=== PATIENT | male | born 1985 | race Caucasian/White ===

== ENCOUNTER 2017-02-07 03:15 | Emergency (ER) | payer SELFPAY ==
[~2017-02-07] VITALS: Ht 172.7 cm; Wt 101.6 kg
--- NOTE | 2017-02-07 03:20 | NUR ---
BIBA TO ER BED 6
[2017-02-07 03:25] VITALS: BP 116/66
--- NOTE | 2017-02-07 03:30 | NUR ---
Patient being evaluated by physician at bedside.
--- NOTE | 2017-02-07 03:30 | NUR ---
31 Y/O M BIBA C/O ETOH , HE DRINKS BEER, FOUND IN A PARKING LOT. NO S/S OF DISTRESS NOTED, ON INSERT OPERATOR. VSS. AWAKE AND ORIENTED X 4. ER MD MADE AWARE.
--- NOTE | 2017-02-07 03:56 | NUR ---
PATIENT ELOPED FROM FACILITY. DISCHARGE INSTRUCTIONS NOT GIVEN TO PATIENT. DR. HOBBS NOTIFIED.
--- NOTE | 2017-02-07 03:58 | NUR ---
[place] [employer] CALLED AND WAS NOTIFIED THAT PT ELOPED AFTER PASSING RO[address] TEST BY SWATHI LEAVITT. PER [place] NO NEED TO FILE REPORT AT THE MOMENT D/T NO FELONIES TO FOLLOW UP ON.SWATHI LEAVITT MADE AWARE.
[2017-02-07 04:08] VITALS: BP 116/66
== END 2017-02-07 03:56 | disposition left against medical advice (07) ==
LOC: MED 03:15
DX: F10.129 Alcohol abuse with intoxication, unspecified (principal)
CPT/HCPCS: 99283

== ENCOUNTER 2017-02-17 00:43 | Emergency (ER) | payer MEDICAID ==
[~2017-02-17] VITALS: Ht 170.2 cm; Wt 97.5 kg
[2017-02-17 00:49] VITALS: BP 105/63
--- NOTE | 2017-02-17 01:00 | NUR ---
PATIENT BIB PD TO ER OF
--- NOTE | 2017-02-17 01:15 | NUR ---
PATIENT BEING EVALUATED BY DR. LAWRENCE.
[2017-02-17 01:25] VITALS: BP 111/61
--- NOTE | 2017-02-17 01:25 | NUR ---
Patient discharged with v/s stable. Written and verbal after care instructions given and explained. Patient verbalized understanding. Police with in custody. All questions addressed prior to discharge. Advised to follow up with PMD.
== END 2017-02-17 01:25 ==
LOC: MED 00:43
DX: Z02.89 Encounter for other administrative examinations (principal); R06.02 Shortness of breath
CPT/HCPCS: 90471; 90715; 99283

== ENCOUNTER 2019-02-19 01:05 | Inpatient (IN) | payer MEDICAID, OTHER ==
--- NOTE | 2019-02-18 22:00 | NUR ---
PT SLEEPING COMFORTABLY IN BED BUT AROUSABLE. NO S/S OF DISTRESS NOTED. NO COMPLAINTS OF PAIN. NO SOB. AFEBRILE. WILL CONTINUE TO MONITOR. Addendum: 02/22/19 at 0011 by Donato Cardona RN WRONG DATE.
[~2019-02-19] VITALS: Ht 170.2 cm; Wt 120.7 kg
[2019-02-19 01:11] VITALS: BP 153/97
--- NOTE | 2019-02-19 01:23 | NUR ---
PT TO ED WITH C/O ABD PAIN INCREASING IN PAIN X 1800. ABD IS SOFT NON TENDER. DENIES PAIN UPON PALPATION. BOWEL SOUNDS ACTIVE X 4. PT STATES "I WAS SEEN AT THE CLINIC AND DX WITH GASTRITIS AND THEY DID A H. PYLORI TEST AND IT WAS POSITIVE" PT PLACED INTO BED, PENDING MD GRANGER.
[2019-02-19] MEDS ORDERED: DICYCLOMINE HCL LIQUID 20 MG, ALUMINUM HYD/MAG/SIMETHICONE 30 ML, LIDOCAINE VISCOUS 2% ... PO ONE ×3 (01:30)
--- NOTE | 2019-02-19 01:55 | NUR ---
PAIN UNRELIEVED BY GI COCKTAIL, PT REMAINS IN 10/10 PAIN. ER MD NOTIFIED. ORDERS TO FOLLOW.
[2019-02-19] MEDS ORDERED: MORPHINE SULFATE 4 MG/ML SYR IVP ONE ×3 (02:05→04:15)
[2019-02-19 02:22] LABS: BASOPHILS % (AUTO) 0.3 % (0.0-2.0); EOSINOPHILS # (AUTO) 0.1 K/uL (0-0.4); EOSINOPHILS % (AUTO) 0.8 % (0.0-4.0); HEMATOCRIT 47.3 % (36-52); HEMOGLOBIN 16.5 g/dL (12.0-18.0); LYMPHOCYTES # (AUTO) 2.1 K/uL (2.0-11.5); LYMPHOCYTES % (AUTO) 18.1 % (20.5-51.1); MEAN CORPUSCULAR HEMOGLOBIN 32 pg (27-31); MEAN CORPUSCULAR HGB CONC 35 g/dL (33-37); MEAN CORPUSCULAR VOLUME 91.2 fL (80-94); MONOCYTES % (AUTO) 8.6 % (1.7-9.3); NEUTROPHILS # (AUTO) 8.3 K/uL (1.8-7.7); NEUTROPHILS % (AUTO) 72.2 % (42.2-75.2); PLATELET COUNT (AUTO) 262 K/uL (140-450); RED BLOOD CELL COUNT(AUTO) 5.19 MIL/uL (4.20-6.10); RED CELL DISTRIBUTION WIDTH 12.4 % (11.6-13.7); WHITE BLOOD COUNT (AUTO) 11.5 K/uL (4.8-10.8)
[2019-02-19 02:32] LABS: ANION GAP 13.8 (8-16); CARBON DIOXIDE 26.8 mmol/L (21-32); CREATININE 1.1 mg/dL (0.7-1.3); POTASSIUM 3.6 mmol/L (3.5-5.1)
[2019-02-19 02:44] LABS: ALBUMIN 3.9 g/dL (3.4-5.0); TOTAL BILIRUBIN 1.9 mg/dL (0.0-1.0)
[2019-02-19] MEDS ORDERED: NACL 0.9% 1,000 ML IV ONE (02:50)
--- NOTE | 2019-02-19 03:00 | NUR ---
PT REPORTING RELIEF OF PAIN POST MORPHINE ADMIN. RATING 6/10. WILL CONTINUE TO ASSESS PAIN.
--- NOTE | 2019-02-19 04:00 | NUR ---
NO CHANGE IN PT CONDITION AT THIS TIME. WILL CONTINUE TO ASSESS.
--- NOTE | 2019-02-19 04:15 | NUR ---
PT REQUESTING PAIN MEDICATION PRIOR TO ULTRASOUND. ER MD AWARE. ORDERS TO FOLLOW.
--- NOTE | 2019-02-19 04:25 | NUR ---
Ultrasound at bedside.
[2019-02-19] MEDS ORDERED: ACETAMINOPHEN 325 MG TAB PO PRN (05:20)
[2019-02-19] MEDS ORDERED: ONDANSETRON 4 MG/2 ML VIAL IVP PRN ×2 (05:20→09:30)
[2019-02-19] MEDS ORDERED: MORPHINE SULFATE 2 MG/ML SYR IVP PRN ×2 (05:25→20:30)
--- NOTE | 2019-02-19 05:35 | NUR ---
Patient will be admitted to care of DR BACH. Admited to MED/SURG. Will go to room 112-A. Belongings list completed. Report to MARCUS JOHN.
--- NOTE | 2019-02-19 05:35 | NUR ---
PT ARRIVED FROM ER VIA WHEELCHAIR, PT AMBULATED TO BED, TOLERATED WELL, REPORT RECEIVED BEDSIDE FROM ED NURSE URMILA RN, PT STABLE, NO DISTRESS NOTED, IV TO L AC 20G PATENT INTACT, SL, PT ON ROOM AIR, STATED HAVING PAIN 10/10 TO THE UPPER ABD, WILL MEDICATE, ORIENT PT TO ROOM, BED, CALL LIGHT, PT STATED UNDERSTANDING, EXPLAINED TO PT THAT CURRENTLY PT IS NPO, PT STATED UNDERSTANDING, MRSA SWAB TAKEN, V/S TAKEN, INITIAL ASSESSMENT DONE, ALL SAFETY PRECAUTION MET, CALL LIGHT WITHIN REACH, WILL CONTINUE TO MONITOR.
[2019-02-19 05:44] LABS: APPEARANCE,URINE CLEAR (CLEAR); BILIRUBIN,URINE NEGATIVE (NEGATIVE); BLOOD, URINE TRACE-L (NEGATIVE); COLOR,URINE DARK YELLOW (YELLOW); LEUKOCYTE ESTERASE ,URINE NEGATIVE (NEGATIVE); NITRITE, URINE NEGATIVE (NEGATIVE); UGLUCOSE NEGATIVE (NEGATIVE)
[2019-02-19 05:45] VITALS: BP 158/90
--- NOTE | 2019-02-19 05:47 | NUR ---
PT C/O PAIN, AND MEDICATION MORPHINE STATED WAS NOT WORKING FOR HIM. NOTIFIED DR. ZAVALETA REGARDING MORPHINE NOT WORKING, STATED WILL ORDER TORADOL. PAIN MEDICATION ADMINISTERED, PT TOLERATED WELL, NO DISTRESS NOPTED, CALL LIGHT WITHIN REACH, WILL CONTINUE TO MONITOR.
[2019-02-19] MEDS: DEXT 5% /NACL 0.9% 1,000 ML IV SCH ×3 (05:48→23:41)
[2019-02-19 05:51] LABS: PROTHROMBIN TIME 10.3 secs (10.8-13.4)
[2019-02-19] MEDS ORDERED: KETOROLAC 30 MG/ML VIAL IVP SCH (06:00)
[2019-02-19 06:04] LABS: BARBITURATE, URINE NEGATIVE ng/ml (NEG <=200); BENZODIAZEPINE, URINE NEGATIVE ng/mL (NEG <=200); CANNABINOID, URINE NEGATIVE ng/mL (NEG <=50); COCAINE, URINE NEGATIVE ng/mL (NEG <=300); OPIATE, URINE NEGATIVE ng/mL (NEG <=2000); PHENCYCLIDINE SCREEN,URINE NEGATIVE ng/mL (NEG <=25)
[2019-02-19 06:39] LABS: RBC,URINE 0-5 /HPF (0-5); WBC,URINE 0-5 /HPF (0-5)
[2019-02-19] MEDS ORDERED: LANSOPRAZOLE 30 MG CAPDR PO SCH (07:03)
--- NOTE | 2019-02-19 07:12 | NUR ---
PREVACID ORDERED NOT ADMINISTERED, PT NPO FOR SURGERY.
--- NOTE | 2019-02-19 07:13 | NUR ---
ENDORSED PT TO DAY SHIFT NURSE DAVID VELAZQUEZ, PT STABLE, NO DISTRESS NOTED, CALL LIGHT WITHIN REACH.
--- NOTE | 2019-02-19 07:14 | NUR ---
RECEIVED BEDSIDE REPORT FROM MICROBIOLOGY ANALYST RN, ALVARO. PATIENT STABLE, NO SIGNS OF DISTRESS ON RA, NO C/O PAIN AT THIS TIME. SAFETY PRECAUTIONS IN PLACE, CALL LIGHT IN REACH. WILL CONTINUE TO MONITOR.
[2019-02-19 07:30] LABS: CHOL/HDL RATIO 6.3 (1-4.5); FREE T4 (FREE THYROXINE) 1.7 ng/dL (0.76-1.46); MAGNESIUM 1.9 mg/dL (1.8-2.4); PHOSPHORUS 3.1 mg/dL (2.5-4.9); THYROID STIMULATING HORMONE 0.92 uIU/mL (0.34-3.74)
[2019-02-19 08:00] VITALS: BP 144/76
[2019-02-19] MEDS: DOCUSATE SODIUM 100 MG GELCAP PO SCH ×2 (08:25→20:39)
[2019-02-19] MEDS: LACTOBACILLUS RHAMNOSUS GG 1 EACH CAP PO SCH (08:25)
--- NOTE | 2019-02-19 08:26 | NUR ---
PATIENT VITALS ARE STABLE DOCTOR SPOKE TO PATIENT REGARDING SURGERY. PATIENT VERBALIZED UNDERSTANDING. CONSENT SIGNED.
[2019-02-19] MEDS: BUPIVACAINE-MPF/EPI 0.25% 30 ML VIAL INJ ONE ×2 (08:42→13:40)
--- NOTE | 2019-02-19 08:50 | NUR ---
PATIENT OFF FLOOR FOR PROCEDURE. REPORT GIVEN TO FINISHER DENTURE, VITALS STABLE, BP SLIGHTLY ELEVATED. PATIENT ALERT AND ORIENTED AT THIS TIME. WILL CONTINUE TO MONITOR ONCE PATIENT RETURNS TO UNIT.
[2019-02-19] MEDS ORDERED: ROCURONIUM 50 MG/5 ML VIAL IV ONE (09:05)
[2019-02-19] MEDS ORDERED: DESFLURANE 240 ML BTL INH ONE (09:05)
[2019-02-19] MEDS ORDERED: DEXAMETHASONE 4 MG/ML VIAL ONE (09:05)
[2019-02-19] MEDS ORDERED: SUCCINYLCHOLINE CHLORIDE 200 MG/10 ML VIAL IVP ONE (09:05)
[2019-02-19] MEDS ORDERED: PROPOFOL 200 MG/20 ML VIAL IV ONE (09:05)
[2019-02-19] MEDS ORDERED: ONDANSETRON 4 MG/2 ML VIAL ONE (09:05)
[2019-02-19] MEDS ORDERED: KETOROLAC 30 MG/ML VIAL ONE (09:05)
[2019-02-19] MEDS ORDERED: ceFAZolin 1,000 MG VIAL ONE (09:15)
--- NOTE | 2019-02-19 09:18 | NUR ---
PATIENT HAS BEEN SCREENED AND CATEGORIZED HIGH NUTRITION RISK. PATIENT WILL BE SEEN WITHIN 1-2 DAYS OF ADMISSION. 02/19/19-02/20/[address]
[2019-02-19] MEDS ORDERED: fentaNYL 0.05 MG/ML VIAL ONE (09:21)
[2019-02-19] MEDS ORDERED: HYDROmorphone PFS 2 MG/ML SYR ONE (09:22)
[2019-02-19] MEDS ORDERED: HYDROmorphone 1 MG/ML AMP IVP PRN (09:30)
[2019-02-19] MEDS ORDERED: THROMBIN KIT 20 MU VIAL TP ONE (10:59)
[2019-02-19 12:00] VITALS: BP 115/67
--- NOTE | 2019-02-19 12:20 | NUR ---
PATIENT RETURNED FROM OR. PATIENT ALERT AND ORIENTED, SAFETY PRECAUTIONS IN PLACE. SPO2 IS LOW AT 85%, APPLIED 2 L O3 NC, SPO2 INCREASED TO 93%, INFORMED DOCTOR. DOCTOR CAME TO BEDSIDE. PER DOCTOR, CONTINUE O2 UNTIL SPO2 REMAINS ABOVE 90% ON RA. ALL OTHER VITALS WITHIN NORMAL LIMITS. PATIENT STABLE.
--- NOTE | 2019-02-19 12:35 | NUR ---
PATIENT VITALS REMAIN STABLE, SPO2 94% ON 2L O2 NC. NO SIGNS OF DISTRESS. SAFETY PRECAUTIONS IN PLACE.
--- NOTE | 2019-02-19 12:50 | NUR ---
PATIENT VITALS REMAIN STABLE. SPO2 REMAINS 94% ON 2L O2 NC. WILL CONTINUE TO MONITOR.
[2019-02-19] MEDS ORDERED: guaiFENesin 20 MG/ML UDC PO PRN (13:00)
--- NOTE | 2019-02-19 13:30 | NUR ---
PATIENT REMAINS ON 2L NC, DOCTOR ORDERED INCENTIVE SPIROMETER TO ENCOURAGE DEEPER BREATHING.
[2019-02-19] MEDS: metroNIDAZOLE 500 MG/NS PREMIX 100 ML IV SCH ×2 (13:48→21:57)
--- NOTE | 2019-02-19 13:48 | NUR ---
ADMINISTERED SCHEDULED MEDICATIONS. PATIENT SPO2 93% ON ROOM AIR. REMOVED NC. WILL CONTINUE TO MONITOR SPO2.
[2019-02-19] MEDS: AMPICILLIN 1,000 MG in NACL 0.9% 50 ML IV SCH ×2 (14:43→21:02)
[2019-02-19] MEDS: HYDROcodone/APAP 7.5/325 MG 1 TAB PO PRN ×2 (14:43→20:40)
--- NOTE | 2019-02-19 14:43 | NUR ---
ADMINISTERED SCHEDULED MEDICATIONS. PATIENT SATING WELL ON ROOM AIR. NO SIGNS OF DISTRESS. SAFETY PRECAUTIONS IN PLACE.
[2019-02-19 16:00] VITALS: BP 103/58
[2019-02-19] MEDS: KETOROLAC 15 MG/ML VIAL IM PRN (17:25)
--- NOTE | 2019-02-19 17:25 | NUR ---
ADMINISTERED 30MG TORADOL IV FOR ABDOMINAL PAIN. WILL REASSESS.
--- NOTE | 2019-02-19 18:45 | NUR ---
PAIN HAS SUBSIDED. PATIENT AMBULATED TO BATHROOM. NO SIGNS OF DISTRESS ON RA.
--- NOTE | 2019-02-19 19:05 | NUR ---
RECD. RESTING IN BED, AWAKE, A/OX4. RESPIRATION EVEN AND UNLABORED.IV OF D5NS AT 100 ML/HR INFUSING, LEFT AC G20. INCISION IN THE ABDOMEN (4) COVERED WITH DRESSING DRY AND INTACT. TOLERATING CLEAR LIQUID DIET. AMBULATING TO THE BR. PASSING GAS BUT NOT BM YET. ADVISED TO ALTERNATELY TURN TO THE SIDES. IS AT THE BEDSIDE. REMINDED TO USE IT WHILE WATCHING TV, TO PREVENT PNEUMONIA. PLAN OF CARE FOR THE SHIFT DISCUSSED. VERBALIZED UNDERSTANDING. PAIN IN THE ABDOMEN 09/05, WILL MEDICATE ORDERED.
--- NOTE | 2019-02-19 19:30 | NUR ---
Patient's Plan of Care was discussed and reviewed with JOI: JADA. WILL CONTINUE TO MONITOR.
[2019-02-19 20:00] VITALS: BP 109/57
--- NOTE | 2019-02-19 20:40 | NUR ---
WATCHING TV. DUE PO MEDICATION GIVEN.
--- NOTE | 2019-02-19 21:30 | NUR ---
Patient's Plan of Care was discussed and reviewed with APARTMENT HOTEL MANAGER: JADA BAUMAN
[2019-02-20] VITALS: BP 120/70
--- NOTE | 2019-02-20 | NUR ---
SLEEPING COMFORTABLY IN BED.
[2019-02-20] MEDS: DEXT 5% /NACL 0.9% 1,000 ML IV SCH ×3 (01:25→21:25)
--- NOTE | 2019-02-20 02:25 | NUR ---
AWAKE IN BED, STATED THAT MORPHINE NOR NORCO DOES NOT WORK MUCH FOR HIM, WANTS TORADOL. WILL BE MEDICATED ORDERED.
[2019-02-20] MEDS: KETOROLAC 15 MG/ML VIAL IM PRN ×3 (02:33→20:37)
[2019-02-20 04:00] VITALS: BP 116/67
[2019-02-20] MEDS: AMPICILLIN 1,000 MG in NACL 0.9% 50 ML IV SCH ×3 (04:55→20:38)
[2019-02-20] MEDS: metroNIDAZOLE 500 MG/NS PREMIX 100 ML IV SCH ×3 (04:56→23:19)
[2019-02-20] MEDS: LANSOPRAZOLE 30 MG CAPDR PO SCH (06:05)
--- NOTE | 2019-02-20 06:59 | NUR ---
CONDITION REMAIN STABLE. COMPLAINTS OF PAIN ATTENDED PROMPTLY. ABLE TO SLEEP WELL. ENCOURAGED TO AMBULATE MORE. WILL ENDORSE TO AM NURSE FOR CONTINUITY OF CARE.
[2019-02-20 07:08] LABS: CARBON DIOXIDE 26.2 mmol/L (21-32); MAGNESIUM 2.1 mg/dL (1.8-2.4); PHOSPHORUS 2.6 mg/dL (2.5-4.9); POTASSIUM 4.2 mmol/L (3.5-5.1); TOTAL BILIRUBIN 5.6 mg/dL (0.0-1.0)
--- NOTE | 2019-02-20 07:20 | NUR ---
RECEIVED REPORT FROM DAY SHIFT NURSE JOSÉ. PATIENT LYING IN BED, NO SIGNS OF DISTRESS. SAFETY PRECAUTIONS IN PLACE
[2019-02-20 08:00] VITALS: BP 134/64
--- NOTE | 2019-02-20 08:00 | NUR ---
PATIENT REPORTED PAIN OF 9/10. ATTEMPTED TO ADMINISTER 2MG MORPHINE IV, BUT PATIENT STATED THAT THE DOCTOR TOLD HIM AT BEDSIDE THAT HE GOING TO INCREASE THE DOSE. DOCTOR ROUNDING AT THE TIME, PATIENT AGREED TO WAIT UNTIL ORDER FOR LARGER DOSE IS ENTERED. PATIENT VERBALIZED UNDERSTANDING THAT IT MAY TAKE SOME TIME. RETURNED 2MG MORPHINE TO [facility].
[2019-02-20 08:13] LABS: BASOPHILS % (AUTO) 0.1 % (0.0-2.0); HEMATOCRIT 42.9 % (36-52); HEMOGLOBIN 14.7 g/dL (12.0-18.0); LYMPHOCYTES % (AUTO) 9.8 % (20.5-51.1); MEAN CORPUSCULAR HEMOGLOBIN 32 pg (27-31); MEAN CORPUSCULAR HGB CONC 34 g/dL (33-37); MEAN CORPUSCULAR VOLUME 93.1 fL (80-94); MONOCYTES # (AUTO) 0.8 K/uL (0.8-1.0); MONOCYTES % (AUTO) 8.2 % (1.7-9.3); NEUTROPHILS # (AUTO) 8.2 K/uL (1.8-7.7); NEUTROPHILS % (AUTO) 81.9 % (42.2-75.2); PLATELET COUNT (AUTO) 210 K/uL (140-450); RED CELL DISTRIBUTION WIDTH 12.5 % (11.6-13.7); WHITE BLOOD COUNT (AUTO) 10.1 K/uL (4.8-10.8)
--- NOTE | 2019-02-20 09:30 | NUR ---
FOLLOWED UP ON INCREASED DOSE OF MORPHINE, DOCTOR TO PLACE AN ORDER FOR 4MG DOSE OF MORPHINE BUT WILL LEAVE THE 2MG DOSE ON ORDER. GOAL IS TO AMBULATE PATIENT AND REDUCE THE NEED FOR MORPHINE.
[2019-02-20] MEDS: LACTOBACILLUS RHAMNOSUS GG 1 EACH CAP PO SCH (09:48)
[2019-02-20] MEDS: MORPHINE SULFATE 4 MG/ML SYR IVP PRN ×3 (09:49→23:16)
[2019-02-20] MEDS: DOCUSATE SODIUM 100 MG GELCAP PO SCH ×2 (09:49→20:21)
--- NOTE | 2019-02-20 09:49 | NUR ---
ADMINISTERED SCHEDULED MEDICATION AND PRN MORPHINE 4MG IV FOR PAIN 06/05. PATIENT TOLERATED MEDICATIONS WELL. NO SIGNS OF DISTRESS ON RA. Addendum: 02/20/19 at 1114 by Cheri Alatorre RN PATIENT VERBALIZED UNDERSTANDING THAT WE WILL TRY TO CONTROL PAIN WITH THE LOWER DOSE, BUT THAT THE HIGHER DOSE IS AVAILABLE IF THE LOWER DOSE IS INSUFFICIENT
--- NOTE | 2019-02-20 11:00 | NUR ---
PATIENT UPGRADED TO REGULAR DIET, WILL INFORM PATIENT. PATIENT IS VERY HUNGRY AND TOLERATING FULL LIQUIDS.
--- NOTE | 2019-02-20 11:30 | NUR ---
PATIENT PLACE ON NPO PENDING FURTHER LAB WORK AND POSSIBLE PROCEDURE. INFORMED PATIENT. PATIENT VERBALIZED UNDERSTANDING.
--- NOTE | 2019-02-20 13:01 | NUR ---
PT INSTRUCTED ON INCENTIVE SPIROMETER USE AND INDICATIONS. PT INSTRUCTED TO USE 10X PER HOUR WHILE AWAKE. PT C/O PAIN AT DIAPHRAGM AREA AND UPPER CLAVICAL PAIN, BUT WAS ABLE TO COMPLETE IS.
--- NOTE | 2019-02-20 13:09 | NUR ---
ADMINISTERED SCHEDULED MEDICATIONS. PATIENT TOLERATED WELL. NO SIGNS OF DISTRESS. PAIN TOLERABLE AT THIS TIME. Addendum: 02/20/19 at 1999 by Cheri Alatorre RN CORRECTION PATIENT REPORTED PAIN OF 7/10 - GAVE TORADOL.
--- NOTE | 2019-02-20 14:16 | NUR ---
02/20/19 RD INITIAL ASSESSMENT COMPLETED PLEASE REFER TO NUTRITION ASSESSMENT UNDER CARE ACTIVITY FOR ESTIMATED NUTRITIONAL NEEDS. 1. CONTINUE NPO MEDICALLY NECESSARY 2. WHEN APPROPRIATE ADVANCE TO CLEAR LIQUIDS AND GRADUALLY TO A BLAND DIET 3. RD PROVIDED GALLBLADDER NUTRITION EDUCATION 4. RD TO FOLLOW-UP 5-7 DAYS, LOW RISK [address]
--- NOTE | 2019-02-20 14:30 | NUR ---
ADMINISTERED SCHEDULED MEDICATIONS. PATIENT DENIES PAIN AT THIS TIME.
--- NOTE | 2019-02-20 15:52 | NUR ---
PATIENT AMBULATED TO BATHROOM, STATES PAIN IS MUCH WORSE WHEN HE MOVES. GAVE MORPHINE FOR 8/10 PAIN.
--- NOTE | 2019-02-20 16:00 | NUR ---
ADMINISTERED PRN MORPHINE FOR 03/05 ABDOMINAL PAIN. PATIENT TOLERATED MEDICATION WELL. Addendum: 02/20/19 at 2002 by Cheri Alatorre RN THIS NOTE APPLIES TO NOTE ENTERED AT [id number]
--- NOTE | 2019-02-20 18:00 | NUR ---
PATIENT RESTING IN BED WITH FAMILY AT BEDSIDE. UPGRADED TO SOFT DIET. ORDERED A LATE TRAY. PATIENT AWARE.
--- NOTE | 2019-02-20 19:14 | NUR ---
GAVE BEDSIDE REPORT TO PEST CONTROL OPERATOR RN, PATIENT IN STABLE CONDITION.
--- NOTE | 2019-02-20 19:15 | NUR ---
RECEIVED REPORT FROM DAVID VELAZQUEZ DAYSHIFT NURSE AT BEDSIDE FOR CONTINUITY OF CARE, PT IN STABLE CONDITION.
[2019-02-20 20:00] VITALS: BP 131/66
--- NOTE | 2019-02-20 20:00 | NUR ---
PT IN LOW BED WITH SIDE RAILS UP X2. HE IS AOX4. PT HAS 4 ABDOMINAL INCISIONS CLOSED WITH LUCIANO. AREA HAS NO LEAKAGE OR S/S OF REDNESS OR INFECTION NOTED. SURROUNDING SKIN INTACT. PT HAS IV SITE ON LAC 20 G INTACT AND RUNNING D5N/S AT 100. PT STATES PAIN IS THERE BUT TOLERABLE AT THIS TIME. PT AMBULATED TO BED AND BACK WITH A STEADY GAIT. HE HAS C/O OF CONSTIPATION. WILL BRING PRUNE JUICE WITH MEDICATIONS.
--- NOTE | 2019-02-20 20:45 | NUR ---
PT C/O 03/05 PAIN IN ABDOMEN AND WAS GIVEN TORADOL 30MG, WILL MONITOR FOR PAIN RELIEF. PT ALSO GIVEN 2 CONTAINERS OF PRUNE JUICE. WILL MONITOR FOR PAIN RELIEF AND BM.
--- NOTE | 2019-02-20 21:30 | NUR ---
PT GIVEN AND COLACE ORDERED. PT ALSO GIVEN IV ABT OF AMPICILLIN AND FLAGYL. PT SAID TORADOL HELPED AND PAIN GREATLY REDUCED. NO BM YET.
--- NOTE | 2019-02-20 23:30 | NUR ---
PT C/O 7/10 PAIN IN ABDOMEN AND WAS GIVEN MORPHINE PRN/IVP ORDERED. NO ADVERSE EFFECTS OF IV ABT. WILL AGAIN MONITOR FOR PAIN RELIEF.
--- NOTE | 2019-02-21 00:30 | NUR ---
PT IN BED RESTING WITH EYES CLOSED BUT AROUSABLE TO LIGHT TOUCH. V/S FOLLOWS T 99.1 P 81 R 18 B/P 113/62 02 94% ON ROOM AIR.
--- NOTE | 2019-02-21 02:30 | NUR ---
PT IN BED ASLEEP. BED LOW SIDE RAILS UP AND IV FLUIDS D5N/S RUNNING ORDERED. NO C/O VOICED BY PT.
[2019-02-21 04:00] VITALS: BP 128/64
[2019-02-21] MEDS: AMPICILLIN 1,000 MG in NACL 0.9% 50 ML IV SCH ×3 (05:42→20:02)
[2019-02-21] MEDS: KETOROLAC 15 MG/ML VIAL IM PRN (05:49)
[2019-02-21] MEDS: LANSOPRAZOLE 30 MG CAPDR PO SCH (05:56)
[2019-02-21] MEDS: metroNIDAZOLE 500 MG/NS PREMIX 100 ML IV SCH ×2 (06:26→12:52)
[2019-02-21] MEDS: DEXT 5% /NACL 0.9% 1,000 ML IV SCH ×3 (07:25→23:55)
--- NOTE | 2019-02-21 07:29 | NUR ---
RECEIVED BEDSIDE REPORT FROM MARCUS KRAUS. PT STABLE, AWAKE, ALERT AND ORIENTED X4. NO SIGNS OF DISTRESS NOTED. DENIES PAIN OR SOB. NO REDNESS, SWELLING, OR INFLAMMATION NOTED ON IV SITE. PT HAS 5 ABDOMINAL INCISIONS, NO REDNESS OR BLEEDING NOTED, LUCIANO INTACT. CALL SMILEY WITHIN REACH. BED IN LOWEST POSITION. SAFETY MEASURES IN PLACE. PLAN OF CARE REVIEWED.
--- NOTE | 2019-02-21 07:30 | NUR ---
CARE ENDORSED TO AM SHIFT AT BEDSIDE FOR CONTINUITY OF CARE, PT IN STABLE CONDITION.
[2019-02-21 08:00] VITALS: BP 123/77
[2019-02-21 08:09] LABS: ALBUMIN 3.1 g/dL (3.4-5.0); ANION GAP 11.1 (8-16); CARBON DIOXIDE 25.6 mmol/L (21-32); CREATININE 0.9 mg/dL (0.7-1.3); MAGNESIUM 1.9 mg/dL (1.8-2.4); PHOSPHORUS 2.7 mg/dL (2.5-4.9); POTASSIUM 3.7 mmol/L (3.5-5.1); TOTAL BILIRUBIN 8.4 mg/dL (0.0-1.0)
[2019-02-21] MEDS: POLYETHYLENE GLYCOL 17 GM/PKT PO SCH (09:28)
[2019-02-21] MEDS: LACTOBACILLUS RHAMNOSUS GG 1 EACH CAP PO SCH (09:29)
[2019-02-21] MEDS: DOCUSATE SODIUM 100 MG GELCAP PO SCH ×2 (09:29→20:02)
[2019-02-21] MEDS: HYDROcodone/APAP 7.5/325 MG 1 TAB PO PRN ×3 (09:33→23:57)
--- NOTE | 2019-02-21 09:34 | NUR ---
HELD SCHEDULED HEPARIN DUE TO POSSIBLE ERCP TODAY, PT AMBULATES STEADILY IN THE ROOM AND HALLWAY, PT HAS SCDS ON. ADMINISTERED ALL OTHER SCHEDULED MEDICATIONS AND PRN NORCO FOR 5/10 ABDOMINAL PAIN. PT TOLERATED WELL. WILL CONTINUE TO MONITOR.
[2019-02-21 10:22] LABS: BASOPHILS # (AUTO) 0.1 K/uL (0.00-0.22); BASOPHILS % (AUTO) 0.7 % (0.0-2.0); EOSINOPHILS # (AUTO) 0.1 K/uL (0-0.4); EOSINOPHILS % (AUTO) 0.9 % (0.0-4.0); HEMATOCRIT 43.8 % (36-52); LYMPHOCYTES % (AUTO) 21.9 % (20.5-51.1); MEAN CORPUSCULAR HEMOGLOBIN 32 pg (27-31); MEAN CORPUSCULAR HGB CONC 34 g/dL (33-37); MEAN CORPUSCULAR VOLUME 93.5 fL (80-94); MONOCYTES % (AUTO) 10.8 % (1.7-9.3); NEUTROPHILS # (AUTO) 5.9 K/uL (1.8-7.7); NEUTROPHILS % (AUTO) 65.7 % (42.2-75.2); PLATELET COUNT (AUTO) 218 K/uL (140-450); RED BLOOD CELL COUNT(AUTO) 4.68 MIL/uL (4.20-6.10); RED CELL DISTRIBUTION WIDTH 12.7 % (11.6-13.7); WHITE BLOOD COUNT (AUTO) 8.9 K/uL (4.8-10.8)
--- NOTE | 2019-02-21 11:05 | NUR ---
PT AMBULATING IN THE HALLWAY WITH STEADY GAIT.
--- NOTE | 2019-02-21 12:16 | NUR ---
ADMINISTERED SCHEDULED AMPICILLIN, PT TOLERATED WELL. FAMILY AT THE BEDSIDE. NO OTHER NEEDS AT THIS TIME.
--- NOTE | 2019-02-21 12:54 | NUR ---
ADMINISTERED SCHEDULED FLAGYL, PT TOLERATED WELL. FAMILY AT THE BEDSIDE.
--- NOTE | 2019-02-21 14:46 | NUR ---
PT SIGNED CONSENT FOR SCHEDULED ERCP TODAY. ADMINISTERED PRN NORCO FOR 6/10 ABDOMINAL PAIN. PT TOLERATED WELL. FAMILY AT THE BEDSIDE. WILL CONTINUE TO MONITOR.
--- NOTE | 2019-02-21 15:50 | NUR ---
ENDORSED PT TO MARCUS DAWSON FOR CONTINUITY OF CARE. PT STABLE.
--- NOTE | 2019-02-21 15:55 | NUR ---
RECEIVED REPORT FROM MARCUS EWING
--- NOTE | 2019-02-21 16:20 | NUR ---
OR NURSE HERE TO MANAGER SOLUTION PATIENT.
[2019-02-21] MEDS ORDERED: MIDAZOLAM 2 MG/2 ML VIAL ONE (16:50)
[2019-02-21] MEDS ORDERED: PROPOFOL 200 MG/20 ML VIAL IV ONE (16:51)
[2019-02-21 18:30] VITALS: BP 135/77
--- NOTE | 2019-02-21 18:31 | NUR ---
RECEIVED REPORT FROM OR. PATIENT IN STABLE CONDITION, FAMILY MEMBER AT BEDSIDE. 99.1F TEMPORAL, 97%RA, HR 77, RR18, BP 135/77.
[2019-02-21 18:48] VITALS: BP 138/83
--- NOTE | 2019-02-21 19:22 | NUR ---
ENDORSED POC TO COMMERCIAL REAL ESTATE PARALEGAL RN. PT IN STABLE CONDITION.
--- NOTE | 2019-02-21 19:23 | NUR ---
REPORT RECEIVED FROM AM NURSE AT BEDSIDE. PT IN STABLE CONDITION. AAOX4. INTRODUCED SELF TO PT. BOARD UPDATED. NO COMPLAINTS OF PAIN DUE TO ALREADY MEDICATED. NO SOB. AFEBRILE. PT IS AMBULATORY. IV SITE L AC 20G RUNNING D5NS@100ML/HR PATENT AND INTACT. SKIN WARM, DRY, AND NOT INTACT DUE TO SURGICAL LUCIANO ON THE ABD. BED LOCKED IN LOW POSITION. CALL SMILEY WITHIN REACH. SAFETY PRECAUTION IN PLACE. ALL NEEDS MET AT THIS TIME. WILL CONTINUE TO MONITOR.
--- NOTE | 2019-02-21 20:02 | NUR ---
AMPICILLIN HUNG AND RUNNING. COLACE GIVEN PO. TYL GIVEN FOR A LOW GRADE FEVER OF 100.0. PT TOLERATED WELL.
--- NOTE | 2019-02-21 22:00 | NUR ---
PT SLEEPING COMFORTABLY IN BED BUT AROUSABLE. NO S/S OF DISTRESS NOTED. NO COMPLAINTS OF PAIN. NO SOB. AFEBRILE. WILL CONTINUE TO MONITOR.
--- NOTE | 2019-02-21 23:57 | NUR ---
NORCO GIVEN FOR 5/10 ABDOMINAL PAIN. PT TOLERATED WELL.
[2019-02-22] VITALS: BP 138/86
--- NOTE | 2019-02-22 01:45 | NUR ---
PT SLEEPING COMFORTABLY IN BED. NO S/S OF DISTRESS NOTED. RESPIRATIONS EVEN, UNLABORED, AND WNL .WILL CONTINUE TO MONITOR.
--- NOTE | 2019-02-22 03:45 | NUR ---
PT SLEEPING COMFORTABLY BUT AROUSABLE. NO S/S OF DISTRESS NOTED. NO COMPLAINTS OF PAIN. NO SOB. AFEBRILE. WILL CONTINUE TO MONITOR.
[2019-02-22] MEDS: AMPICILLIN 1,000 MG in NACL 0.9% 50 ML IV SCH ×2 (05:32→12:17)
--- NOTE | 2019-02-22 05:32 | NUR ---
AMPICILLIN HUNG AND RUNNING. LANSOPRAZOLE GIVEN PO. PT TOLERATED WELL.
[2019-02-22] MEDS: LANSOPRAZOLE 30 MG CAPDR PO SCH (05:33)
[2019-02-22 06:10] LABS: HEPATITIS A ANTIBODY IGM Negative (Negative); HEPATITIS B CORE AB TOTAL Negative (Negative); HEPATITIS B SURFACE ANTIBODY Non Reactive (.); HEPATITIS B SURFACE ANTIGEN Negative (Negative)
[2019-02-22] MEDS ORDERED: BENZOCAINE/MENTHOL 1 LOZ MM PRN (06:50)
--- NOTE | 2019-02-22 07:05 | NUR ---
RECEIVED BEDSIDE REPORT FROM MARCUS GELLER. PT STABLE, SLEEPING, BUT EASILY AROUSABLE. NO SIGNS OF DISTRESS NOTED. DENIES PAIN OR SOB. NO REDNESS, SWELLING, OR INFLAMMATION NOTED ON IV SITE. PT HAS 5 ABDOMINAL INCISIONS, NO REDNESS OR BLEEDING NOTED, LUCIANO INTACT. CALL SMILEY WITHIN REACH. BED IN LOWEST POSITION. SAFETY MEASURES IN PLACE. PLAN OF CARE REVIEWED.
[2019-02-22 07:08] LABS: ANION GAP 13.6 (8-16); CARBON DIOXIDE 27.2 mmol/L (21-32); MAGNESIUM 1.9 mg/dL (1.8-2.4); PHOSPHORUS 4.6 mg/dL (2.5-4.9); POTASSIUM 3.8 mmol/L (3.5-5.1); TOTAL BILIRUBIN 5.5 mg/dL (0.0-1.0)
[2019-02-22 07:29] LABS: BASOPHILS % (AUTO) 0.6 % (0.0-2.0); EOSINOPHILS # (AUTO) 0.2 K/uL (0-0.4); EOSINOPHILS % (AUTO) 3.1 % (0.0-4.0); HEMATOCRIT 46.1 % (36-52); HEMOGLOBIN 15.9 g/dL (12.0-18.0); LYMPHOCYTES % (AUTO) 24.5 % (20.5-51.1); MEAN CORPUSCULAR HEMOGLOBIN 32 pg (27-31); MEAN CORPUSCULAR HGB CONC 34 g/dL (33-37); MEAN CORPUSCULAR VOLUME 92.7 fL (80-94); MONOCYTES # (AUTO) 0.8 K/uL (0.8-1.0); MONOCYTES % (AUTO) 9.7 % (1.7-9.3); NEUTROPHILS % (AUTO) 62.1 % (42.2-75.2); PLATELET COUNT (AUTO) 231 K/uL (140-450); RED BLOOD CELL COUNT(AUTO) 4.98 MIL/uL (4.20-6.10); RED CELL DISTRIBUTION WIDTH 12.8 % (11.6-13.7)
[2019-02-22 08:00] VITALS: BP 120/63
[2019-02-22] MEDS: LACTOBACILLUS RHAMNOSUS GG 1 EACH CAP PO SCH (09:03)
[2019-02-22] MEDS: HYDROcodone/APAP 7.5/325 MG 1 TAB PO PRN (09:03)
[2019-02-22] MEDS: DOCUSATE SODIUM 100 MG GELCAP PO SCH (09:04)
[2019-02-22] MEDS: POLYETHYLENE GLYCOL 17 GM/PKT PO SCH (09:04)
--- NOTE | 2019-02-22 09:06 | NUR ---
ADMINISTERED SCHEDULED MEDICATIONS, PT TOLERATED WELL. ADMINISTERED PRN NORCO FOR 5/10 ABDOMINAL PAIN. WILL CONTINUE TO MONITOR.
--- NOTE | 2019-02-22 09:13 | NUR ---
ADMINISTERED PRN CEPACOL FOR C/O OF SORE THROAT. PT TOLERATED WELL. NO OTHER NEEDS AT THIS TIME.
--- NOTE | 2019-02-22 10:20 | NUR ---
PT STABLE, SLEEPING, BUT EASILY AROUSABLE. NO SIGNS OF DISTRESS NOTED.
[2019-02-22] MEDS ORDERED: OMEP20TC PO (11:22)
[2019-02-22] MEDS ORDERED: AMOX500C25 PO (11:22)
[2019-02-22] MEDS ORDERED: DOCU-299 PO (11:22)
[2019-02-22] MEDS ORDERED: HYDR-5122 PO (11:22)
[2019-02-22] MEDS ORDERED: CLAR500T PO (11:22)
[2019-02-22] MEDS ORDERED: INUL1CTB PO (11:22)
[2019-02-22] MEDS: DEXT 5% /NACL 0.9% 1,000 ML IV SCH (12:18)
--- NOTE | 2019-02-22 12:22 | NUR ---
ADMINISTERED SCHEDULED AMPICILLIN, PT TOLERATED WELL. CHANGED IVF BAG. FAMILY AT THE BEDSIDE. NO OTHER NEEDS AT THIS TIME.
--- NOTE | 2019-02-22 14:55 | NUR ---
D/C INSTRUCTIONS, PAPERWORK, AND PRESCRIPTION GIVEN. PT VERBALIZED UNDERSTANDING. QUESTIONS AND CONCERNS WERE ADDRESSED. INSTRUCTED PT ON HOW TO CARE FOR SURGICAL INCISIONS, PT AND FAMILY VERBALIZED UNDERSTANDING. PT GIVEN WOUND CARE SUPPLIES PER MD ORDER. D/C IV, CATHETER TIP INTACT, BLEEDING CONTROLLED. PT STABLE, AMBULATES WITH STEADY GAIT, COMMUNICATES APPROPRIATELY WITH STAFF. DISCHARGE PHOTOGRAPH TAKEN. PNEUMONIA VACCINE AND FLU VACCINE NOT APPLICABLE. PT TOOK ALL BELONGINGS WITH HIM. ESCORTED PT TO THE LOBBY. PT D/C TO HOME.
== END 2019-02-22 15:06 | disposition home or self-care (01) | DRG 419 ==
LOC: MED 01:05 → MTU 05:22
PROVIDERS: ADMIT General Practice; ATTEND General Practice
PROC: 0F798DZ Dilation of Common Bile Duct with Intraluminal Device, Via Natural or Artificial Opening Endoscopic (ICD-10-PCS; 2019-02-19)
PROC: 0FT44ZZ Resection of Gallbladder, Percutaneous Endoscopic Approach (ICD-10-PCS; principal; 2019-02-19 09:00)
DX: K80.67 Calculus of gallbladder and bile duct with acute and chronic cholecystitis with obstruction (principal); R74.0 Nonspecific elevation of levels of transaminase and lactic acid dehydrogenase [LDH]; E78.5 Hyperlipidemia, unspecified
CPT/HCPCS: 36415; 71045; 74330; 76705; 77003; 80053; 80305; 81001; 82150; 82374; 83036; 83690; 83735; 84100; 84439; 84443; 85025; 85610; 85730; 86704; 86706; 86708; 86709; 86803; 87081; 87340; 88304; 96361; 96374; 96376; 99285; C1769; J0290; J0330; J0690; J1100; J1170; J1644; J1885; J2250; J2270; J2405; J2704; J3010; J3490; J7030; J7042; Q0092

== ENCOUNTER 2019-03-03 09:56 | Emergency (ER) | payer MEDICAID ==
[~2019-03-03] VITALS: Ht 170.2 cm; Wt 120.2 kg
[~2019-03-03 09:56] MED LIST: AMOX500C25 PO; CLAR500T PO; DOCU-299 PO; HYDR-5122 PO; INUL1CTB PO; OMEP20TC PO
--- NOTE | 2019-03-03 09:56 | NUR ---
Patient YASMEEN BRUNO for pre-booking medical screening exam, transferred to chair E. RN evaluating patient.
[2019-03-03 10:01] VITALS: BP 135/96
--- NOTE | 2019-03-03 10:17 | NUR ---
brought in by [employer] [employer] Officer Jossue as a prebook pt c/o abdominal pain s/p cholecystectomy <1 wk---serosangueinous drainage from 2 wound sites
[2019-03-03] MEDS ORDERED: FAMOTIDINE 20 MG TAB PO ONE (12:05)
[2019-03-03] MEDS ORDERED: ALUMINUM HYD/MAG/SIMETHICONE 30 ML UDC PO ONE (12:05)
--- NOTE | 2019-03-03 12:17 | NUR ---
PATIENT [facility] POLICE DEPT. PATIENT EXAMINED BY DR. FARAH. PATIENT MEDICALLY CLEARED AND RELEASED IN CUSTODY IN STABLE CONDITION. ORIGINAL PRE-BOOK FORM GIVEN TO OFFICER JOSIAH].
[2019-03-03 12:18] VITALS: BP 133/84
== END 2019-03-03 12:15 ==
LOC: MED 09:56
DX: T81.31XA Disruption of external operation (surgical) wound, not elsewhere classified, initial encounter (principal); F17.210 Nicotine dependence, cigarettes, uncomplicated; Z90.49 Acquired absence of other specified parts of digestive tract; Z98.890 Other specified postprocedural states; Z79.899 Other long term (current) drug therapy; Y83.8 Other surgical procedures as the cause of abnormal reaction of the patient, or of later complication, without mention of misadventure at the time of the procedure
CPT/HCPCS: 99283